=== PATIENT | female | born 1940 | race Caucasian/White ===

== ENCOUNTER 2021-02-22 16:49 | Inpatient (IN) | payer MEDICARE, OTHER ==
[~2021-02-22] VITALS: Ht 172.7 cm; Wt 70.3 kg
[2021-02-22] MEDS ORDERED: KEPPRA500 MG PO (18:38)
[2021-02-22] MEDS ORDERED: OXYBUTYNIN CHLOR5 MG PO (18:38)
[2021-02-22] MEDS ORDERED: LOTREL 10-20 M1 EACH (18:38)
[2021-02-22] MEDS ORDERED: PIPERACILLIN/TAZOBACTAM 3.375 GM in SODIUM CHLORIDE 0.9% 50ML 50 ML IV STA (18:39)
[2021-02-22] MEDS ORDERED: Vancomycin IV 1 GM in SODIUM CHLORIDE 0.9% 250ML 250 ML IV STA (18:39)
[2021-02-22 18:40] LABS: BASOPHILS # (AUTO) 0.1 (0.0-0.1); BASOPHILS % 0.4 % (0.0-1.0); EOSINOPHILS # (AUTO) 0.1 (0.0-0.4); EOSINOPHILS % 1.1 % (0.0-6.0); HEMATOCRIT 46.1 % (34.2-44.1); HEMOGLOBIN 14.8 g/dL (12.0-16.0); LYMPHOCYTES # (AUTO) 2.3 (1.0-3.2); LYMPHOCYTES % 19.7 % (18.0-39.1); MEAN CORPUSCULAR HEMOGLOBIN 32.7 pg (28-32); MEAN CORPUSCULAR HGB CONC 32.1 g/dL (31-35); MONOCYTES # (AUTO) 0.7 (0.2-0.8); MONOCYTES % 5.9 % (4.4-11.3); NEUTROPHILS # (AUTO) 8.3 (2.1-6.9); NEUTROPHILS % 72.5 % (38.7-80.0); PLATELET COUNT 298 x10e3/uL (140-360); RED BLOOD COUNT 4.52 x10e6/uL (3.6-5.1); RED CELL DISTRIBUTION WIDTH 15.2 % (11.7-14.4)
[2021-02-22] MEDS ORDERED: SODIUM CHLORIDE 0.9% 1000ML 1,000 ML IV STA ×3 (18:40→21:04)
[2021-02-22] MEDS ORDERED: PIPERACILLIN/TAZOBACTAM 3.375 GM VIAL ONE (18:54)
[2021-02-22] MEDS ORDERED: SODIUM CHLORIDE 0.9% 100 ML ONE (18:54)
[2021-02-22] MEDS ORDERED: CEPHALEXIN500 MG PO (19:02)
[2021-02-22] MEDS ORDERED: VITAMIN D3125 MCG PO (19:02)
[2021-02-22 19:52] LABS: ALBUMIN 2.4 g/dL (3.5-5.0); ALBUMIN/GLOBULIN RATIO 0.7 (0.8-2.0); ANION GAP 10.6 mmol/L (8-16); CALCIUM 7.9 mg/dL (8.4-10.2); CREATININE, SERUM 0.61 mg/dL (0.57-1.11); POTASSIUM 3.6 mmol/L (3.5-5.1)
[2021-02-22] MEDS ORDERED: ACETAMINOPHEN 1000 MG/100 ML IV STA (19:55)
[2021-02-22 20:55] LABS: CLARITY,URINE CLOUDY (CLEAR); COLOR,URINE YELLOW (YELLOW); KETONES,URINE NEGATIVE (NEGATIVE); LEUKOCYTE ESTERASE ,URINE NEGATIVE (NEGATIVE); NITRITE,URINE NEGATIVE (NEGATIVE); PROTEIN,URINE DIPSTICK NEGATIVE (NEGATIVE)
[2021-02-22 20:56] LABS: URINE UROBILINOGEN 1 mg/dL (0.2 - 1)
[2021-02-22 21:14] LABS: BACTERIA,URINE FEW /HPF; EPITHELIAL CELLS,URINE MODERATE /LPF; MUCUS,URINE MANY (RARE)
[2021-02-22] MEDS ORDERED: SODIUM CHLORIDE 0.9% 1000ML 600 ML IV ONE (23:15)
[2021-02-22 23:30] VITALS: BP 126/88
[2021-02-22] MEDS: NOREPINEPHRINE 8 MG/D5W 250 ML 250 ML IV SCH (23:30)
[2021-02-22] MEDS: SODIUM CHLORIDE 0.9% 1000ML 1,000 ML IV SCH (23:30)
[2021-02-23] VITALS (15 sets, daily range): BP systolic 79–154; BP diastolic 41–93
[2021-02-23] MEDS ORDERED: ACETAMINOPHEN 325 MG TAB PO PRN (01:45)
[2021-02-23] MEDS ORDERED: CALCIUM GLUCONATE 10% INJ 4.65 MEQ in SODIUM CHLORIDE 0.9% 50ML 50 ML IV ONE (01:45)
[2021-02-23] MEDS ORDERED: HALOPERIDOL LACTATE 5 MG/ML VIAL IV PRN (01:45)
[2021-02-23] MEDS ORDERED: ONDANSETRON HCL INJ 2MG/ML 2ML 2 MG/ML VIAL IV PRN (01:45)
[2021-02-23] MEDS ORDERED: ASPIRIN 81 MG CHEW TAB PO ONE (01:45)
[2021-02-23] MEDS ORDERED: DEXTROSE 50% SYRINGE 50 ML IV PRN (01:45)
[2021-02-23] MEDS ORDERED: HYDRALAZINE HCL 20 MG/ML VIAL IV PRN (01:45)
[2021-02-23] MEDS: MEROPENEM 500 MG in SODIUM CHLORIDE 0.9% 50ML 50 ML IV SCH ×4 (02:04→22:26)
[2021-02-23 02:38] LABS: CREATINE KINASE MB 1.6 ng/mL (0-5.0)
[2021-02-23] MEDS: Vancomycin IV 1 GM in SODIUM CHLORIDE 0.9% 250ML 250 ML IV SCH ×2 (04:30→16:42)
[2021-02-23] MEDS: INSULIN REGULAR, HUMAN 100 UNIT/1 ML SQ SCH ×3 (06:00→18:00)
[2021-02-23] MEDS: ACETAMINOPHEN 1000 MG/100 ML IV SCH ×3 (06:00→12:00)
[2021-02-23 06:09] LABS: BASOPHILS % 0.2 % (0.0-1.0); EOSINOPHILS % 0.1 % (0.0-6.0); HEMATOCRIT 39.1 % (34.2-44.1); HEMOGLOBIN 12.8 g/dL (12.0-16.0); LYMPHOCYTES # (AUTO) 0.6 (1.0-3.2); LYMPHOCYTES % 3.1 % (18.0-39.1); MEAN CORPUSCULAR HEMOGLOBIN 33.1 pg (28-32); MEAN CORPUSCULAR HGB CONC 32.7 g/dL (31-35); MONOCYTES # (AUTO) 0.8 (0.2-0.8); NEUTROPHILS # (AUTO) 17.8 (2.1-6.9); NEUTROPHILS % 91.9 % (38.7-80.0); PLATELET COUNT 275 x10e3/uL (140-360); RED BLOOD COUNT 3.87 x10e6/uL (3.6-5.1); RED CELL DISTRIBUTION WIDTH 15.1 % (11.7-14.4)
[2021-02-23] MEDS: ENOXAPARIN INJ 80 MG/0.8 ML SYR SC SCH (06:34)
[2021-02-23 06:36] LABS: ANION GAP 11.2 mmol/L (8-16); CALCIUM 7.9 mg/dL (8.4-10.2); CREATININE, SERUM 0.58 mg/dL (0.57-1.11); POTASSIUM 3.2 mmol/L (3.5-5.1)
[2021-02-23 06:38] LABS: MAGNESIUM 1.8 MG/DL (1.3-2.1); PHOSPHORUS 2.2 MG/DL (2.3-4.7)
[2021-02-23 07:05] LABS: CREATINE KINASE MB 1.4 ng/mL (0-5.0)
[2021-02-23] MEDS: SODIUM CHLORIDE 0.9% 1000ML 1,000 ML IV SCH (07:32)
[2021-02-23] MEDS ORDERED: LACTATED RINGER'S 1,000 ML INJ ONE (08:15)
[2021-02-23] MEDS ORDERED: POTASSIUM CHLORIDE 20MEQ/100ML 200 ML IV ONE (09:00)
[2021-02-23] MEDS ORDERED: ENOXAPARIN INJ 80 MG/0.8 ML SYR SC SCH (09:00)
[2021-02-23] MEDS: MULTIVITAMINS/MINERALS TAB PO SCH (09:00)
[2021-02-23] MEDS: FAMOTIDINE 20 MG/2 ML VIAL IV SCH (09:31)
[2021-02-23] MEDS: LEVETIRACETAM 500MG/5ML VIAL 500 MG in SODIUM CHLORIDE 0.9% 100 ML 100 ML IV SCH ×2 (09:35→22:26)
[2021-02-23] MEDS ORDERED: ACETAMINOPHEN 1000 MG/100 ML IV PRN (15:30)
[2021-02-23] MEDS: NOREPINEPHRINE 8 MG/D5W 250 ML 250 ML IV SCH (23:15)
[2021-02-24] VITALS (8 sets, daily range): BP systolic 110–138; BP diastolic 43–90
[2021-02-24] MEDS: Vancomycin IV 1 GM in SODIUM CHLORIDE 0.9% 250ML 250 ML IV SCH ×2 (05:01→15:21)
[2021-02-24 05:59] LABS: BASOPHILS % 0.2 % (0.0-1.0); EOSINOPHILS # (AUTO) 0.1 (0.0-0.4); EOSINOPHILS % 0.6 % (0.0-6.0); HEMATOCRIT 35.8 % (34.2-44.1); HEMOGLOBIN 11.6 g/dL (12.0-16.0); LYMPHOCYTES # (AUTO) 0.9 (1.0-3.2); LYMPHOCYTES % 6.8 % (18.0-39.1); MEAN CORPUSCULAR HGB CONC 32.4 g/dL (31-35); MONOCYTES # (AUTO) 0.6 (0.2-0.8); MONOCYTES % 4.2 % (4.4-11.3); NEUTROPHILS # (AUTO) 11.6 (2.1-6.9); NEUTROPHILS % 87.7 % (38.7-80.0); PLATELET COUNT 225 x10e3/uL (140-360); RED BLOOD COUNT 3.51 x10e6/uL (3.6-5.1); RED CELL DISTRIBUTION WIDTH 15.4 % (11.7-14.4)
[2021-02-24] MEDS: INSULIN REGULAR, HUMAN 100 UNIT/1 ML SQ SCH ×4 (06:00→17:50)
[2021-02-24] MEDS: MEROPENEM 500 MG in SODIUM CHLORIDE 0.9% 50ML 50 ML IV SCH ×2 (06:32→12:42)
[2021-02-24 06:42] LABS: ALBUMIN/GLOBULIN RATIO 0.6 (0.8-2.0); ANION GAP 10.7 mmol/L (8-16); CALCIUM 8.3 mg/dL (8.4-10.2); CREATININE, SERUM 0.55 mg/dL (0.57-1.11); POTASSIUM 3.7 mmol/L (3.5-5.1)
[2021-02-24] MEDS: MULTIVITAMINS/MINERALS TAB PO SCH (09:00)
[2021-02-24] MEDS: BALSAM PERU/CASTOR OIL 60 GM OINT...G. TP SCH (09:01)
[2021-02-24] MEDS: FAMOTIDINE 20 MG/2 ML VIAL IV SCH (09:01)
[2021-02-24] MEDS: ENOXAPARIN INJ 80 MG/0.8 ML SYR SC SCH (09:01)
[2021-02-24] MEDS: LEVETIRACETAM 500MG/5ML VIAL 500 MG in SODIUM CHLORIDE 0.9% 100 ML 100 ML IV SCH (09:01)
[2021-02-24] MEDS: COLLAGENASE 5 GM TUBE TP SCH (09:01)
[2021-02-24] MEDS ORDERED: AMIODARONE HCL 150 MG/100 ML BAG IV ONE (15:15)
[2021-02-24] MEDS ORDERED: AMIODARONE HCL 150 MG in DEXTROSE 5% 100ML 100 ML IV SCH (15:20)
[2021-02-24] MEDS ORDERED: ADENOSINE 6MG/2ML 1 ML ONE (15:28)
[2021-02-24] MEDS ORDERED: AMIODARONE 900MG 500 ML IV ONE (15:30)
[2021-02-24] MEDS ORDERED: AMIODARONE HCL 150MG 100 ML IV ONE (15:45)
[2021-02-24] MEDS ORDERED: METOPROLOL TARTRATE INJ 1 MG/ML VIAL IV ONE (15:45)
[2021-02-24] MEDS ORDERED: DIATRIZOATE MEGL/DIATRIZOA SOD 30 ML BTL PO ONE (17:29)
[2021-02-24] MEDS: NOREPINEPHRINE 8 MG/D5W 250 ML 250 ML IV SCH (23:15)
[2021-02-25] VITALS (17 sets, daily range): BP systolic 104–151; BP diastolic 57–94
[2021-02-25] MEDS: MEROPENEM 500 MG in SODIUM CHLORIDE 0.9% 50ML 50 ML IV SCH ×4 (00:29→22:10)
[2021-02-25] MEDS: LEVETIRACETAM 500MG/5ML VIAL 500 MG in SODIUM CHLORIDE 0.9% 100 ML 100 ML IV SCH ×3 (00:29→22:09)
[2021-02-25] MEDS ORDERED: Vancomycin IV 1 GM VIAL ONE (04:25)
[2021-02-25] MEDS: Vancomycin IV 1 GM in SODIUM CHLORIDE 0.9% 250ML 250 ML IV SCH ×2 (05:40→14:57)
[2021-02-25] MEDS: INSULIN REGULAR, HUMAN 100 UNIT/1 ML SQ SCH ×3 (06:00→12:00)
[2021-02-25 06:20] LABS: BASOPHILS % 0.3 % (0.0-1.0); EOSINOPHILS # (AUTO) 0.1 (0.0-0.4); EOSINOPHILS % 1.1 % (0.0-6.0); HEMATOCRIT 37.9 % (34.2-44.1); HEMOGLOBIN 12.3 g/dL (12.0-16.0); LYMPHOCYTES # (AUTO) 1.4 (1.0-3.2); LYMPHOCYTES % 12.3 % (18.0-39.1); MEAN CORPUSCULAR HEMOGLOBIN 32.8 pg (28-32); MEAN CORPUSCULAR HGB CONC 32.5 g/dL (31-35); MEAN CORPUSCULAR VOLUME 101.1 fL (81-99); MONOCYTES # (AUTO) 0.6 (0.2-0.8); MONOCYTES % 5.3 % (4.4-11.3); NEUTROPHILS # (AUTO) 9.4 (2.1-6.9); NEUTROPHILS % 80.5 % (38.7-80.0); PLATELET COUNT 268 x10e3/uL (140-360); RED BLOOD COUNT 3.75 x10e6/uL (3.6-5.1); RED CELL DISTRIBUTION WIDTH 15.5 % (11.7-14.4)
[2021-02-25 06:45] LABS: ALBUMIN 2.4 g/dL (3.5-5.0); ALBUMIN/GLOBULIN RATIO 0.6 (0.8-2.0); ANION GAP 11.3 mmol/L (8-16); CALCIUM 8.8 mg/dL (8.4-10.2); CREATININE, SERUM 0.58 mg/dL (0.57-1.11); MAGNESIUM 1.9 MG/DL (1.3-2.1); POTASSIUM 3.3 mmol/L (3.5-5.1)
[2021-02-25] MEDS: FAMOTIDINE 20 MG/2 ML VIAL IV SCH (08:07)
[2021-02-25] MEDS: ENOXAPARIN INJ 80 MG/0.8 ML SYR SC SCH (08:08)
[2021-02-25] MEDS: BALSAM PERU/CASTOR OIL 60 GM OINT...G. TP SCH (08:08)
[2021-02-25] MEDS: MULTIVITAMINS/MINERALS TAB PO SCH (08:08)
[2021-02-25] MEDS: COLLAGENASE 5 GM TUBE TP SCH (08:08)
[2021-02-25] MEDS: NOREPINEPHRINE 8 MG/D5W 250 ML 250 ML IV SCH (23:15)
[2021-02-26] VITALS (16 sets, daily range): BP systolic 99–159; BP diastolic 57–88
[2021-02-26] MEDS: Vancomycin IV 1 GM in SODIUM CHLORIDE 0.9% 250ML 250 ML IV SCH (06:04)
[2021-02-26] MEDS: MEROPENEM 500 MG in SODIUM CHLORIDE 0.9% 50ML 50 ML IV SCH ×3 (06:04→23:54)
[2021-02-26 06:41] LABS: BASOPHILS % 0.5 % (0.0-1.0); EOSINOPHILS # (AUTO) 0.1 (0.0-0.4); EOSINOPHILS % 1.4 % (0.0-6.0); HEMATOCRIT 37.9 % (34.2-44.1); HEMOGLOBIN 12.4 g/dL (12.0-16.0); LYMPHOCYTES # (AUTO) 1.6 (1.0-3.2); LYMPHOCYTES % 18.5 % (18.0-39.1); MEAN CORPUSCULAR HEMOGLOBIN 33.1 pg (28-32); MEAN CORPUSCULAR HGB CONC 32.7 g/dL (31-35); MEAN CORPUSCULAR VOLUME 101.1 fL (81-99); MONOCYTES # (AUTO) 0.6 (0.2-0.8); MONOCYTES % 6.4 % (4.4-11.3); NEUTROPHILS # (AUTO) 6.2 (2.1-6.9); NEUTROPHILS % 72.6 % (38.7-80.0); PLATELET COUNT 267 x10e3/uL (140-360); RED BLOOD COUNT 3.75 x10e6/uL (3.6-5.1); RED CELL DISTRIBUTION WIDTH 15.2 % (11.7-14.4)
[2021-02-26 07:04] LABS: ALBUMIN 2.3 g/dL (3.5-5.0); ALBUMIN/GLOBULIN RATIO 0.6 (0.8-2.0); CALCIUM 8.6 mg/dL (8.4-10.2); CREATININE, SERUM 0.56 mg/dL (0.57-1.11)
[2021-02-26] MEDS: BALSAM PERU/CASTOR OIL 60 GM OINT...G. TP SCH (08:31)
[2021-02-26] MEDS: FAMOTIDINE 20 MG/2 ML VIAL IV SCH (08:31)
[2021-02-26] MEDS: LEVETIRACETAM 500MG/5ML VIAL 500 MG in SODIUM CHLORIDE 0.9% 100 ML 100 ML IV SCH ×2 (08:31→23:54)
[2021-02-26] MEDS: ENOXAPARIN INJ 80 MG/0.8 ML SYR SC SCH (08:31)
[2021-02-26] MEDS: COLLAGENASE 5 GM TUBE TP SCH (08:31)
[2021-02-26] MEDS: AMIODARONE HCL 200 MG TAB PO SCH ×2 (09:09→18:00)
[2021-02-26] MEDS: MULTIVITAMINS/MINERALS TAB PO SCH (09:09)
[2021-02-26] MEDS ORDERED: POTASSIUM CHLORIDE 20MEQ/100ML 200 ML IV ONE (12:45)
[2021-02-26] MEDS: NYSTATIN 15 GM POWDER UD BTL TOP SCH (18:27)
[2021-02-26] MEDS: NOREPINEPHRINE 8 MG/D5W 250 ML 250 ML IV SCH (23:15)
[2021-02-27] VITALS (16 sets, daily range): BP systolic 100–134; BP diastolic 49–89
[2021-02-27] MEDS: MEROPENEM 500 MG in SODIUM CHLORIDE 0.9% 50ML 50 ML IV SCH ×3 (06:23→21:23)
[2021-02-27 06:40] LABS: BASOPHILS % 0.2 % (0.0-1.0); EOSINOPHILS % 0.1 % (0.0-6.0); HEMATOCRIT 39.8 % (34.2-44.1); HEMOGLOBIN 12.8 g/dL (12.0-16.0); LYMPHOCYTES # (AUTO) 0.8 (1.0-3.2); LYMPHOCYTES % 6.3 % (18.0-39.1); MEAN CORPUSCULAR HEMOGLOBIN 32.8 pg (28-32); MEAN CORPUSCULAR HGB CONC 32.2 g/dL (31-35); MEAN CORPUSCULAR VOLUME 102.1 fL (81-99); MONOCYTES # (AUTO) 0.8 (0.2-0.8); MONOCYTES % 6.5 % (4.4-11.3); NEUTROPHILS # (AUTO) 10.5 (2.1-6.9); NEUTROPHILS % 86.2 % (38.7-80.0); PLATELET COUNT 283 x10e3/uL (140-360); RED CELL DISTRIBUTION WIDTH 15.7 % (11.7-14.4)
[2021-02-27 07:11] LABS: ALBUMIN 2.4 g/dL (3.5-5.0); ALBUMIN/GLOBULIN RATIO 0.6 (0.8-2.0); ANION GAP 13.6 mmol/L (8-16); CREATININE, SERUM 0.65 mg/dL (0.57-1.11); POTASSIUM 3.6 mmol/L (3.5-5.1)
[2021-02-27] MEDS: Vancomycin IV 1.25 GM in SODIUM CHLORIDE 0.9% 250ML 250 ML IV SCH (08:11)
[2021-02-27] MEDS: NYSTATIN 15 GM POWDER UD BTL TOP SCH ×2 (08:40→17:18)
[2021-02-27] MEDS: ENOXAPARIN INJ 80 MG/0.8 ML SYR SC SCH (08:40)
[2021-02-27] MEDS: BALSAM PERU/CASTOR OIL 60 GM OINT...G. TP SCH (08:40)
[2021-02-27] MEDS: FAMOTIDINE 20 MG/2 ML VIAL IV SCH (08:40)
[2021-02-27] MEDS: LEVETIRACETAM 500MG/5ML VIAL 500 MG in SODIUM CHLORIDE 0.9% 100 ML 100 ML IV SCH ×2 (08:40→21:23)
[2021-02-27] MEDS: AMIODARONE HCL 200 MG TAB PO SCH (08:40)
[2021-02-27] MEDS: COLLAGENASE 5 GM TUBE TP SCH (08:40)
[2021-02-27] MEDS: MULTIVITAMINS/MINERALS TAB PO SCH (08:40)
[2021-02-27] MEDS: METOPROLOL TARTRATE 25 MG TAB PO SCH (17:18)
[2021-02-27] MEDS: NOREPINEPHRINE 8 MG/D5W 250 ML 250 ML IV SCH (23:15)
[2021-02-28] VITALS (11 sets, daily range): BP systolic 102–147; BP diastolic 56–81
[2021-02-28] MEDS: MEROPENEM 500 MG in SODIUM CHLORIDE 0.9% 50ML 50 ML IV SCH ×3 (05:41→22:30)
[2021-02-28 06:37] LABS: BASOPHILS % 0.3 % (0.0-1.0); EOSINOPHILS # (AUTO) 0.1 (0.0-0.4); EOSINOPHILS % 0.7 % (0.0-6.0); HEMATOCRIT 34.9 % (34.2-44.1); HEMOGLOBIN 11.1 g/dL (12.0-16.0); LYMPHOCYTES # (AUTO) 1.3 (1.0-3.2); LYMPHOCYTES % 18.4 % (18.0-39.1); MEAN CORPUSCULAR HEMOGLOBIN 32.5 pg (28-32); MEAN CORPUSCULAR HGB CONC 31.8 g/dL (31-35); MONOCYTES # (AUTO) 0.5 (0.2-0.8); MONOCYTES % 6.5 % (4.4-11.3); NEUTROPHILS # (AUTO) 5.3 (2.1-6.9); NEUTROPHILS % 73.4 % (38.7-80.0); PLATELET COUNT 225 x10e3/uL (140-360); RED BLOOD COUNT 3.42 x10e6/uL (3.6-5.1); RED CELL DISTRIBUTION WIDTH 15.7 % (11.7-14.4)
[2021-02-28 06:42] LABS: ALBUMIN 2.1 g/dL (3.5-5.0); ALBUMIN/GLOBULIN RATIO 0.6 (0.8-2.0); CALCIUM 8.6 mg/dL (8.4-10.2); CREATININE, SERUM 0.51 mg/dL (0.57-1.11)
[2021-02-28] MEDS: Vancomycin IV 1.25 GM in SODIUM CHLORIDE 0.9% 250ML 250 ML IV SCH (08:00)
[2021-02-28] MEDS: MULTIVITAMINS/MINERALS TAB PO SCH (09:31)
[2021-02-28] MEDS: NYSTATIN 15 GM POWDER UD BTL TOP SCH ×2 (09:31→17:00)
[2021-02-28] MEDS: FAMOTIDINE 20 MG/2 ML VIAL IV SCH (09:31)
[2021-02-28] MEDS: LEVETIRACETAM 500MG/5ML VIAL 500 MG in SODIUM CHLORIDE 0.9% 100 ML 100 ML IV SCH ×2 (09:31→21:21)
[2021-02-28] MEDS: COLLAGENASE 5 GM TUBE TP SCH (09:31)
[2021-02-28] MEDS: ENOXAPARIN INJ 80 MG/0.8 ML SYR SC SCH (09:31)
[2021-02-28] MEDS: BALSAM PERU/CASTOR OIL 60 GM OINT...G. TP SCH (09:31)
[2021-02-28] MEDS: METOPROLOL TARTRATE 25 MG TAB PO SCH ×2 (09:31→21:55)
[2021-02-28] MEDS ORDERED: POTASSIUM CHLORIDE 20MEQ/100ML 200 ML IV ONE (11:00)
[2021-03-01] VITALS (8 sets, daily range): BP systolic 101–138; BP diastolic 66–88
[2021-03-01] MEDS: MEROPENEM 500 MG in SODIUM CHLORIDE 0.9% 50ML 50 ML IV SCH (06:31)
[2021-03-01] MEDS: LEVETIRACETAM 500MG/5ML VIAL 500 MG in SODIUM CHLORIDE 0.9% 100 ML 100 ML IV SCH ×2 (08:17→21:03)
[2021-03-01] MEDS: FAMOTIDINE 20 MG/2 ML VIAL IV SCH (08:17)
[2021-03-01] MEDS: Vancomycin IV 1.25 GM in SODIUM CHLORIDE 0.9% 250ML 250 ML IV SCH (08:17)
[2021-03-01] MEDS: NYSTATIN 15 GM POWDER UD BTL TOP SCH ×2 (08:18→16:50)
[2021-03-01] MEDS: MULTIVITAMINS/MINERALS TAB PO SCH (08:18)
[2021-03-01] MEDS: BALSAM PERU/CASTOR OIL 60 GM OINT...G. TP SCH (08:18)
[2021-03-01] MEDS: ENOXAPARIN INJ 80 MG/0.8 ML SYR SC SCH (08:18)
[2021-03-01] MEDS: METOPROLOL TARTRATE 25 MG TAB PO SCH ×2 (08:18→21:04)
[2021-03-01] MEDS: COLLAGENASE 5 GM TUBE TP SCH (08:18)
[2021-03-01] MEDS ORDERED: SODIUM CHLORIDE 0.9% 250ML 250 ML ONE (09:36)
[2021-03-02] VITALS (7 sets, daily range): BP systolic 103–148; BP diastolic 59–95
[2021-03-02 08:29] LABS: BASOPHILS % 0.3 % (0.0-1.0); EOSINOPHILS # (AUTO) 0.2 (0.0-0.4); EOSINOPHILS % 1.9 % (0.0-6.0); HEMATOCRIT 37.7 % (34.2-44.1); HEMOGLOBIN 12.1 g/dL (12.0-16.0); LYMPHOCYTES # (AUTO) 1.7 (1.0-3.2); LYMPHOCYTES % 18.4 % (18.0-39.1); MEAN CORPUSCULAR HEMOGLOBIN 32.7 pg (28-32); MEAN CORPUSCULAR HGB CONC 32.1 g/dL (31-35); MEAN CORPUSCULAR VOLUME 101.9 fL (81-99); MONOCYTES # (AUTO) 0.5 (0.2-0.8); MONOCYTES % 5.5 % (4.4-11.3); NEUTROPHILS # (AUTO) 6.8 (2.1-6.9); NEUTROPHILS % 73.3 % (38.7-80.0); PLATELET COUNT 252 x10e3/uL (140-360); RED CELL DISTRIBUTION WIDTH 15.8 % (11.7-14.4)
[2021-03-02] MEDS: FAMOTIDINE 20 MG/2 ML VIAL IV SCH (08:43)
[2021-03-02] MEDS: NYSTATIN 15 GM POWDER UD BTL TOP SCH ×2 (08:44→16:44)
[2021-03-02] MEDS: METOPROLOL TARTRATE 25 MG TAB PO SCH (08:44)
[2021-03-02] MEDS: MULTIVITAMINS/MINERALS TAB PO SCH (08:44)
[2021-03-02] MEDS: COLLAGENASE 5 GM TUBE TP SCH (08:45)
[2021-03-02] MEDS: BALSAM PERU/CASTOR OIL 60 GM OINT...G. TP SCH (08:45)
[2021-03-02] MEDS: ENOXAPARIN INJ 80 MG/0.8 ML SYR SC SCH (08:45)
[2021-03-02] MEDS: LEVETIRACETAM 500MG/5ML VIAL 500 MG in SODIUM CHLORIDE 0.9% 100 ML 100 ML IV SCH ×2 (08:47→20:41)
[2021-03-02] MEDS ORDERED: DOXYCYCLINE HYCLATE TABLET 100 MG TAB PO SCH (09:00)
[2021-03-02 09:07] LABS: ALBUMIN 2.3 g/dL (3.5-5.0); ALBUMIN/GLOBULIN RATIO 0.7 (0.8-2.0); ANION GAP 12.4 mmol/L (8-16); CALCIUM 8.3 mg/dL (8.4-10.2); CREATININE, SERUM 0.54 mg/dL (0.57-1.11); POTASSIUM 3.4 mmol/L (3.5-5.1)
[2021-03-02] MEDS: CEFTRIAXONE 1 GM in SODIUM CHLORIDE 0.9% 50ML 50 ML IV SCH (15:14)
[2021-03-02] MEDS: CLINDAMYCIN 600MG / 50ML 50 ML IV SCH ×2 (16:44→21:01)
[2021-03-03] VITALS (8 sets, daily range): BP systolic 117–161; BP diastolic 65–97
[2021-03-03] MEDS: CLINDAMYCIN 600MG / 50ML 50 ML IV SCH ×2 (05:04→14:00)
[2021-03-03] MEDS: NYSTATIN 15 GM POWDER UD BTL TOP SCH ×2 (08:50→17:04)
[2021-03-03] MEDS: MULTIVITAMINS/MINERALS TAB PO SCH (08:50)
[2021-03-03] MEDS: BALSAM PERU/CASTOR OIL 60 GM OINT...G. TP SCH (08:50)
[2021-03-03] MEDS: FAMOTIDINE 20 MG/2 ML VIAL IV SCH (08:50)
[2021-03-03] MEDS: COLLAGENASE 5 GM TUBE TP SCH (08:50)
[2021-03-03] MEDS: LEVETIRACETAM 500MG/5ML VIAL 500 MG in SODIUM CHLORIDE 0.9% 100 ML 100 ML IV SCH ×2 (08:50→21:00)
[2021-03-03] MEDS: CEFTRIAXONE 1 GM in SODIUM CHLORIDE 0.9% 50ML 50 ML IV SCH (15:54)
[2021-03-03] MEDS ORDERED: ONDANSETRON HCL 4 MG ORAL DISINTEGRATING TAB PO PRN (19:30)
[2021-03-04] VITALS (7 sets, daily range): BP systolic 108–146; BP diastolic 59–87
[2021-03-04] MEDS: CLINDAMYCIN 600MG / 50ML 50 ML IV SCH ×4 (00:13→22:22)
[2021-03-04] MEDS ORDERED: SODIUM CHLORIDE 0.9% 250ML 250 ML ONE (01:15)
[2021-03-04] MEDS: FAMOTIDINE 20 MG/2 ML VIAL IV SCH (09:20)
[2021-03-04] MEDS: MULTIVITAMINS/MINERALS TAB PO SCH (09:20)
[2021-03-04] MEDS: LEVETIRACETAM 500MG/5ML VIAL 500 MG in SODIUM CHLORIDE 0.9% 100 ML 100 ML IV SCH ×2 (09:20→21:00)
[2021-03-04] MEDS: METOPROLOL SUCCINATE 25 MG TAB XL PO SCH (09:20)
[2021-03-04] MEDS: BALSAM PERU/CASTOR OIL 60 GM OINT...G. TP SCH (09:21)
[2021-03-04] MEDS: COLLAGENASE 5 GM TUBE TP SCH (09:21)
[2021-03-04] MEDS: NYSTATIN 15 GM POWDER UD BTL TOP SCH ×2 (09:21→16:28)
[2021-03-04] MEDS: CEFTRIAXONE 1 GM in SODIUM CHLORIDE 0.9% 50ML 50 ML IV SCH (16:28)
[2021-03-05] VITALS: BP 148/80
[2021-03-05 04:00] VITALS: BP 143/79
[2021-03-05] MEDS: CLINDAMYCIN 600MG / 50ML 50 ML IV SCH ×3 (06:00→22:24)
[2021-03-05 08:00] VITALS: BP 159/103
[2021-03-05] MEDS: MULTIVITAMINS/MINERALS TAB PO SCH (08:28)
[2021-03-05] MEDS: FAMOTIDINE 20 MG/2 ML VIAL IV SCH (08:28)
[2021-03-05] MEDS: COLLAGENASE 5 GM TUBE TP SCH (08:33)
[2021-03-05] MEDS: NYSTATIN 15 GM POWDER UD BTL TOP SCH (08:33)
[2021-03-05] MEDS: METOPROLOL SUCCINATE 25 MG TAB XL PO SCH (08:33)
[2021-03-05] MEDS: BALSAM PERU/CASTOR OIL 60 GM OINT...G. TP SCH (08:33)
[2021-03-05] MEDS: LEVETIRACETAM 500MG/5ML VIAL 500 MG in SODIUM CHLORIDE 0.9% 100 ML 100 ML IV SCH ×2 (08:45→21:00)
[2021-03-05 12:00] VITALS: BP 160/71
[2021-03-05 16:00] VITALS: BP 150/68
[2021-03-05] MEDS: CEFTRIAXONE 1 GM in SODIUM CHLORIDE 0.9% 50ML 50 ML IV SCH (16:06)
[2021-03-05 20:00] VITALS: BP 128/65
[2021-03-06] VITALS (8 sets, daily range): BP systolic 145–190; BP diastolic 68–80
[2021-03-06] MEDS: CLINDAMYCIN 600MG / 50ML 50 ML IV SCH ×3 (05:15→21:23)
[2021-03-06] MEDS: METOPROLOL SUCCINATE 25 MG TAB XL PO SCH (08:24)
[2021-03-06] MEDS: LEVETIRACETAM 500MG/5ML VIAL 500 MG in SODIUM CHLORIDE 0.9% 100 ML 100 ML IV SCH ×2 (08:24→20:11)
[2021-03-06] MEDS: MULTIVITAMINS/MINERALS TAB PO SCH (08:24)
[2021-03-06] MEDS: FAMOTIDINE 20 MG/2 ML VIAL IV SCH (08:24)
[2021-03-06] MEDS: COLLAGENASE 5 GM TUBE TP SCH (08:25)
[2021-03-06] MEDS: BALSAM PERU/CASTOR OIL 60 GM OINT...G. TP SCH (08:25)
[2021-03-06] MEDS ORDERED: SODIUM CHLORIDE 0.9% 250ML 250 ML ONE (09:48)
[2021-03-06] MEDS: CEFTRIAXONE 1 GM in SODIUM CHLORIDE 0.9% 50ML 50 ML IV SCH (17:00)
[2021-03-06] MEDS ORDERED: FUROSEMIDE INJ 10 MG/ML 4 ML VIAL ONE (17:19)
[2021-03-07] VITALS (8 sets, daily range): BP systolic 128–166; BP diastolic 70–93
[2021-03-07] MEDS: CLINDAMYCIN 600MG / 50ML 50 ML IV SCH ×3 (05:22→21:48)
[2021-03-07 05:47] LABS: BASOPHILS % 0.1 % (0.0-1.0); EOSINOPHILS % 0.2 % (0.0-6.0); HEMATOCRIT 39.1 % (34.2-44.1); HEMOGLOBIN 12.9 g/dL (12.0-16.0); LYMPHOCYTES # (AUTO) 0.9 (1.0-3.2); LYMPHOCYTES % 5.6 % (18.0-39.1); MEAN CORPUSCULAR HEMOGLOBIN 33.3 pg (28-32); MONOCYTES # (AUTO) 0.8 (0.2-0.8); MONOCYTES % 4.8 % (4.4-11.3); NEUTROPHILS # (AUTO) 14.5 (2.1-6.9); NEUTROPHILS % 88.4 % (38.7-80.0); PLATELET COUNT 293 x10e3/uL (140-360); RED BLOOD COUNT 3.87 x10e6/uL (3.6-5.1)
[2021-03-07 06:55] LABS: ALBUMIN 2.5 g/dL (3.5-5.0); CALCIUM 8.4 mg/dL (8.4-10.2); POTASSIUM 3.6 mmol/L (3.5-5.1)
[2021-03-07 07:16] LABS: ALBUMIN/GLOBULIN RATIO 0.7 (0.8-2.0); ANION GAP 14.7 mmol/L (8-16); CREATININE, SERUM 0.67 mg/dL (0.57-1.11)
[2021-03-07] MEDS: FAMOTIDINE 20 MG/2 ML VIAL IV SCH (09:23)
[2021-03-07] MEDS: COLLAGENASE 5 GM TUBE TP SCH (09:23)
[2021-03-07] MEDS: METOPROLOL SUCCINATE 25 MG TAB XL PO SCH (09:23)
[2021-03-07] MEDS: BALSAM PERU/CASTOR OIL 60 GM OINT...G. TP SCH (09:23)
[2021-03-07] MEDS: MULTIVITAMINS/MINERALS TAB PO SCH (09:23)
[2021-03-07] MEDS: LEVETIRACETAM 500MG/5ML VIAL 500 MG in SODIUM CHLORIDE 0.9% 100 ML 100 ML IV SCH ×2 (09:23→20:44)
[2021-03-07] MEDS: CEFTRIAXONE 1 GM in SODIUM CHLORIDE 0.9% 50ML 50 ML IV SCH (16:00)
[2021-03-08] VITALS (7 sets, daily range): BP systolic 129–186; BP diastolic 70–95
[2021-03-08] MEDS: CLINDAMYCIN 600MG / 50ML 50 ML IV SCH ×3 (05:18→21:58)
[2021-03-08 06:16] LABS: BASOPHILS # (AUTO) 0.1 (0.0-0.1); BASOPHILS % 0.5 % (0.0-1.0); EOSINOPHILS # (AUTO) 0.1 (0.0-0.4); EOSINOPHILS % 1.2 % (0.0-6.0); HEMATOCRIT 34.1 % (34.2-44.1); HEMOGLOBIN 10.9 g/dL (12.0-16.0); LYMPHOCYTES # (AUTO) 1.5 (1.0-3.2); LYMPHOCYTES % 16.1 % (18.0-39.1); MEAN CORPUSCULAR HEMOGLOBIN 33.1 pg (28-32); MEAN CORPUSCULAR VOLUME 103.6 fL (81-99); MONOCYTES # (AUTO) 0.5 (0.2-0.8); MONOCYTES % 5.3 % (4.4-11.3); NEUTROPHILS % 76.3 % (38.7-80.0); PLATELET COUNT 231 x10e3/uL (140-360); RED BLOOD COUNT 3.29 x10e6/uL (3.6-5.1); RED CELL DISTRIBUTION WIDTH 16.1 % (11.7-14.4)
[2021-03-08 06:40] LABS: ALBUMIN 2.1 g/dL (3.5-5.0); ANION GAP 10.8 mmol/L (8-16); CALCIUM 8.2 mg/dL (8.4-10.2); CREATININE, SERUM 0.57 mg/dL (0.57-1.11); POTASSIUM 3.8 mmol/L (3.5-5.1)
[2021-03-08 06:41] LABS: ALBUMIN/GLOBULIN RATIO 0.7 (0.8-2.0)
[2021-03-08] MEDS: BALSAM PERU/CASTOR OIL 60 GM OINT...G. TP SCH (10:15)
[2021-03-08] MEDS: METOPROLOL SUCCINATE 25 MG TAB XL PO SCH (10:15)
[2021-03-08] MEDS: FAMOTIDINE 20 MG/2 ML VIAL IV SCH (10:15)
[2021-03-08] MEDS: MULTIVITAMINS/MINERALS TAB PO SCH (10:15)
[2021-03-08] MEDS: COLLAGENASE 5 GM TUBE TP SCH (10:15)
[2021-03-08] MEDS: LEVETIRACETAM 500MG/5ML VIAL 500 MG in SODIUM CHLORIDE 0.9% 100 ML 100 ML IV SCH ×2 (10:15→16:26)
[2021-03-08] MEDS: CEFTRIAXONE 1 GM in SODIUM CHLORIDE 0.9% 50ML 50 ML IV SCH (16:20)
[2021-03-09] VITALS (8 sets, daily range): BP systolic 99–169; BP diastolic 52–99
[2021-03-09] MEDS: CLINDAMYCIN 600MG / 50ML 50 ML IV SCH ×3 (05:15→21:27)
[2021-03-09] MEDS: LEVETIRACETAM 500MG/5ML VIAL 500 MG in SODIUM CHLORIDE 0.9% 100 ML 100 ML IV SCH ×2 (08:31→21:03)
[2021-03-09] MEDS: FAMOTIDINE 20 MG/2 ML VIAL IV SCH (08:31)
[2021-03-09] MEDS: MULTIVITAMINS/MINERALS TAB PO SCH (08:31)
[2021-03-09] MEDS: METOPROLOL SUCCINATE 25 MG TAB XL PO SCH (08:32)
[2021-03-09] MEDS: BALSAM PERU/CASTOR OIL 60 GM OINT...G. TP SCH (08:32)
[2021-03-09] MEDS: COLLAGENASE 5 GM TUBE TP SCH (08:32)
[2021-03-09] MEDS: CEFTRIAXONE 1 GM in SODIUM CHLORIDE 0.9% 50ML 50 ML IV SCH (15:59)
[2021-03-10] VITALS (8 sets, daily range): BP systolic 125–162; BP diastolic 80–87
[2021-03-10] MEDS: CLINDAMYCIN 600MG / 50ML 50 ML IV SCH ×3 (05:35→22:18)
[2021-03-10 07:22] LABS: BASOPHILS # (AUTO) 0.1 (0.0-0.1); BASOPHILS % 0.8 % (0.0-1.0); EOSINOPHILS # (AUTO) 0.1 (0.0-0.4); EOSINOPHILS % 1.9 % (0.0-6.0); HEMATOCRIT 34.8 % (34.2-44.1); HEMOGLOBIN 11.1 g/dL (12.0-16.0); LYMPHOCYTES # (AUTO) 1.8 (1.0-3.2); LYMPHOCYTES % 23.5 % (18.0-39.1); MEAN CORPUSCULAR HEMOGLOBIN 32.6 pg (28-32); MEAN CORPUSCULAR HGB CONC 31.9 g/dL (31-35); MEAN CORPUSCULAR VOLUME 102.1 fL (81-99); MONOCYTES # (AUTO) 0.5 (0.2-0.8); MONOCYTES % 6.9 % (4.4-11.3); NEUTROPHILS % 66.2 % (38.7-80.0); PLATELET COUNT 213 x10e3/uL (140-360); RED BLOOD COUNT 3.41 x10e6/uL (3.6-5.1)
[2021-03-10 07:42] LABS: ALBUMIN 2.3 g/dL (3.5-5.0); ALBUMIN/GLOBULIN RATIO 0.7 (0.8-2.0); ANION GAP 12.8 mmol/L (8-16); CALCIUM 8.1 mg/dL (8.4-10.2); CREATININE, SERUM 0.55 mg/dL (0.57-1.11); POTASSIUM 3.8 mmol/L (3.5-5.1)
[2021-03-10] MEDS: FAMOTIDINE 20 MG TAB PO SCH (08:08)
[2021-03-10] MEDS: MULTIVITAMINS/MINERALS TAB PO SCH (08:08)
[2021-03-10] MEDS: LEVETIRACETAM 500MG/5ML VIAL 500 MG in SODIUM CHLORIDE 0.9% 100 ML 100 ML IV SCH ×2 (08:11→20:15)
[2021-03-10] MEDS: METOPROLOL SUCCINATE 25 MG TAB XL PO SCH (08:11)
[2021-03-10] MEDS: CEFTRIAXONE 1 GM in SODIUM CHLORIDE 0.9% 50ML 50 ML IV SCH (15:50)
[2021-03-10] MEDS: BALSAM PERU/CASTOR OIL 60 GM OINT...G. TP SCH (16:32)
[2021-03-10] MEDS: COLLAGENASE 5 GM TUBE TP SCH (16:32)
[2021-03-10] MEDS ORDERED: SODIUM CHLORIDE 0.9% 250ML 250 ML ONE (20:22)
[2021-03-11 00:53] VITALS: BP 148/85
[2021-03-11 05:42] VITALS: BP 163/83
[2021-03-11] MEDS: CLINDAMYCIN 600MG / 50ML 50 ML IV SCH (06:05)
[2021-03-11 08:00] VITALS: BP 124/58
[2021-03-11] MEDS: COLLAGENASE 5 GM TUBE TP SCH (08:02)
[2021-03-11] MEDS: MULTIVITAMINS/MINERALS TAB PO SCH (08:02)
[2021-03-11] MEDS: FAMOTIDINE 20 MG TAB PO SCH (08:02)
[2021-03-11] MEDS: LEVETIRACETAM 500MG/5ML VIAL 500 MG in SODIUM CHLORIDE 0.9% 100 ML 100 ML IV SCH (08:02)
[2021-03-11] MEDS: BALSAM PERU/CASTOR OIL 60 GM OINT...G. TP SCH (08:02)
[2021-03-11] MEDS: METOPROLOL SUCCINATE 25 MG TAB XL PO SCH (08:26)
[2021-03-11 10:01] VITALS: BP 124/58
== END 2021-03-11 12:50 | DRG 871 ==
LOC: ER 16:52 → ERHOLD 20:03 → ICU 23:29 → IMCU 02-28 14:40 → MED/SURG3 03-03 17:23
PROVIDERS: ADMIT Internal Medicine; ATTEND Internal Medicine
PROC: 02HV33Z Insertion of Infusion Device into Superior Vena Cava, Percutaneous Approach (ICD-10-PCS; principal; 2021-02-23)
DX: A41.9 Sepsis, unspecified organism (principal); L89.154 Pressure ulcer of sacral region, stage 4; R65.21 Severe sepsis with septic shock; R53.2 Functional quadriplegia; G92.8 Other toxic encephalopathy; G93.41 Metabolic encephalopathy; L03.115 Cellulitis of right lower limb; M86.671 Other chronic osteomyelitis, right ankle and foot; I47.1 Supraventricular tachycardia; T81.30XA Disruption of wound, unspecified, initial encounter; E44.0 Moderate protein-calorie malnutrition; G40.909 Epilepsy, unspecified, not intractable, without status epilepticus; I69.311 Memory deficit following cerebral infarction; I10 Essential (primary) hypertension; E88.09 Other disorders of plasma-protein metabolism, not elsewhere classified; Z86.011 Personal history of benign neoplasm of the brain; M24.50 Contracture, unspecified joint; Z68.23 Body mass index [BMI] 23.0-23.9, adult; I48.91 Unspecified atrial fibrillation; Z79.01 Long term (current) use of anticoagulants; D50.0 Iron deficiency anemia secondary to blood loss (chronic); R94.5 Abnormal results of liver function studies; R13.12 Dysphagia, oropharyngeal phase; R62.7 Adult failure to thrive; E87.6 Hypokalemia; T17.990A Other foreign object in respiratory tract, part unspecified in causing asphyxiation, initial encounter; K21.9 Gastro-esophageal reflux disease without esophagitis; Z74.01 Bed confinement status
CPT/HCPCS: 36415; 71045; 76700; 80048; 80053; 80202; 81001; 82550; 82553; 82948; 83605; 83735; 84100; 84443; 84484; 85025; 85651; 86141; 87040; 87086; 93005; 93306; 93925; 97139; 99251; 99285; J0153; J0360; J0610; J0696; J1650; J1940; J2185; J2543; J3370; J3480; J7030; J7050; J7121; U0002